=== PATIENT | female | born 1975 | race Caucasian/White ===

== ENCOUNTER 2018-07-17 12:36 | Emergency (ER) | END 2018-07-17 19:02 | disposition home or self-care (01) ==

== ENCOUNTER 2019-02-11 22:38 | Emergency (ER) | payer MEDICAID ==
[~2019-02-11] VITALS: Ht 147.3 cm; Wt 75.6 kg
[~2019-02-11 22:38] MED LIST: CIPR500T4 PO; METR500T PO; ONDA4TAB14 PO
[2019-02-11 22:50] VITALS: Ht 147.3 cm; Wt 75.6 kg
[2019-02-12] MEDS ORDERED: ONDANSETRON 4 MG INJ IV STA (01:39)
[2019-02-12] MEDS ORDERED: KETOROLAC 15 MG INJ IV STA (01:39)
[2019-02-12] MEDS ORDERED: SOD CHLORIDE 0.9% 1,000 ML IV ONE (02:00)
--- NOTE | 2019-02-12 05:59 | ERD ---
ER Documentation Chief Complaint Chief Complaint AP X'S 1 WEEK HPI This is a 43-year-old female with a past medical history of diverticulosis who is presenting with approximately 1 week of progressive waxing and waning moderate cramping aching colicky suprapubic abdominal pain radiating to both flanks with nausea but no vomiting. The patient does not endorse alleviating or exacerbating factors. She does not endorse constipation or diarrhea. She has not had any black or bloody or tarry stools. She denies dysuria or hematuria or urgency, but she does note increased urinary frequency. The patient denies feeling sick recently. The patient denies fever or chills. The patient has had no headache or vision changes. The patient does not endorse neck or back pain. The patient denies lightheadedness or dizziness. The patient has had no chest pain or trouble breathing. The patient has had no focal deficits. The patient has had no weakness or numbness or tingling to the face or extremities. ROS All systems reviewed and are negative except as per history of present illness. Medications Home Meds Active Scripts Ondansetron (Ondansetron Odt) 4 Mg Tab.rapdis, 4 MG PO Q6H PRN for NAUSEA AND/OR VOMITING, #10 TAB Prov:CARIDAD GOVEA MD 07/17/18 Metronidazole* (Flagyl*) 500 Mg Tablet, 500 MG PO TID for 10 Days, TAB Prov:CARIDAD GOVEA MD 07/17/18 Ciprofloxacin Hcl* (Ciprofloxacin Hcl*) 500 Mg Tablet, 500 MG PO BID for 10 Days, TAB Prov:CARIDAD GOVEA MD 07/17/18 Allergies Allergies: Coded Allergies: No Known Allergies (Verified Allergy, Mild, 07/17/18) PMhx/Soc Medical and Surgical Hx: pt denies Medical Hx, pt denies Surgical Hx History of Surgery: No Anesthesia Reaction: No Hx Neurological Disorder: No Hx Respiratory Disorders: No Hx Cardiac Disorders: No Hx Psychiatric Problems: No Hx Miscellaneous Medical Probl: Yes (Diverticulosis) Hx Alcohol Use: No Hx Substance Use: No Hx Tobacco Use: No Smoking Status: Never smoker FmHx Family History: No diabetes Physical Exam Vitals Vital Signs Date Temp Pulse Resp B/P (MAP) Pulse Ox O2 O2 Flow FiO2 Time Delivery Rate 02/11/19 98.5 77 16 115/66 95 22:50 (82) Physical Exam Const: No acute distress Head: Atraumatic Eyes: Normal Conjunctiva ENT: Normal External Ears, Nose and Mouth. Neck: Full range of motion. No meningismus. Resp: Clear to auscultation bilaterally Cardio: Regular rate and rhythm, no murmurs Abd: Soft, non distended. Mild suprapubic abdominal tenderness. No guarding or rebound. Normal bowel sounds Skin: No petechiae or rashes Back: No midline or flank tenderness Ext: No cyanosis, or edema Neur: Awake and alert Psych: Normal Mood and Affect Result Diagram: 02/12/1914802/12/19148 Results 24 hrs Laboratory Tests Test 02/12/19 01:49 02/12/19 02:06 White Blood Count 9.0 10^3/ul Red Blood Count 4.59 10^6/ul Hemoglobin 13.3 g/dl Hematocrit 40.2 % Mean Corpuscular Volume 87.6 fl Mean Corpuscular Hemoglobin 29.0 pg Mean Corpuscular Hemoglobin Concent 33.1 g/dl Red Cell Distribution Width 14.1 % Platelet Count 397 10^3/UL Mean Platelet Volume 10.0 fl Immature Granulocytes % 0.300 % Neutrophils % 54.4 % Lymphocytes % 27.7 % Monocytes % 6.5 % Eosinophils % 10.5 % Basophils % 0.6 % Nucleated Red Blood Cells % 0.0 /100WBC Immature Granulocytes # 0.030 10^3/ul Neutrophils # 4.9 10^3/ul Lymphocytes # 2.5 10^3/ul Monocytes # 0.6 10^3/ul Eosinophils # 1.0 10^3/ul Basophils # 0.1 10^3/ul Nucleated Red Blood Cells # 0.0 10^3/ul Urine Color YELLOW Urine Clarity SLIGHTLY CLOUDY Urine pH 5.0 Urine Specific [place] 1.010 Urine Ketones NEGATIVE mg/dL Urine Nitrite NEGATIVE mg/dL Urine Bilirubin NEGATIVE mg/dL Urine Urobilinogen NEGATIVE mg/dL Urine Leukocyte Esterase 1+ Bettie/ul Urine Microscopic RBC 28 /HPF Urine Microscopic WBC 7 /HPF Urine Squamous Epithelial Cells FEW /HPF Urine Bacteria FEW /HPF Urine Hemoglobin 2+ mg/dL Urine Glucose NEGATIVE mg/dL Urine Total Protein NEGATIVE mg/dl Sodium Level 142 mmol/L Potassium Level 3.8 mmol/L Chloride Level 105 mmol/L Carbon Dioxide Level 27 mmol/L Anion Gap 10 Blood Urea Nitrogen 5 mg/dl Creatinine 0.47 mg/dl Est Glomerular Filtrat Rate mL/min > 60 mL/min Glucose Level 122 mg/dl Calcium Level 9.8 mg/dl Total Bilirubin 0.4 mg/dl Direct Bilirubin 0.00 mg/dl Indirect Bilirubin 0.4 mg/dl Aspartate Amino Transf (AST/SGOT) 81 IU/L Alanine Aminotransferase (ALT/SGPT) 110 IU/L Alkaline Phosphatase 71 IU/L Total Protein 7.9 g/dl Albumin 4.1 g/dl Globulin 3.80 g/dl Albumin/Globulin Ratio 1.07 Lipase 77 U/L POC Beta HCG, Qualitative NEGATIVE Current Medications Medications Dose Sig/Sheldon Start Time Status Last (Trade) Ordered Route PRN Stop Time Admin Dose Reason Admin Sodium 1,000 ml @ Q1H ONCE 02/12/19 DC 02/12/19 Chloride 1,000 mls/hr IV 02:00 02/12/19 02:07 02:59 Ketorolac 15 mg ONCE STAT 02/12/19 DC 02/12/19 Tromethamine IV 01:39 02/12/19 02:10 (Toradol) 01:41 Ondansetron 4 mg ONCE STAT 02/12/19 DC 02/12/19 HCl (Zofran IV 01:39 02/12/19 02:09 Inj) 01:41 Procedures/MDM MDM The patient's presentation warrants further investigation. Previous medical rec ords, if available, were reviewed. LABS The patient's laboratory testing was obtained and reviewed. No emergent treatment was required unless described below. CBC: No E/o systemic infection or severe anemia or thrombocytopenia Chemistry: No E/o severe acidosis or alkalosis or renal failure or diabetic ketoacidosis. Transaminitis. Lipase: No E/o pancreatitis Urine: E/o acute infection with hematuria IMAGING Imaging and Radiology interpretation reviewed. CT Abd/Pelvis FINDINGS: CT abdomen: LOWER THORAX: Lung bases are clear. LIVER AND GALLBLADDER: There is diminished density throughout the liver consistent with diffuse steatosis. The liver and gallbladder are otherwise unremarkable. SPLEEN: Normal. PANCREAS: Normal. ADRENAL GLANDS: Normal. KIDNEYS: Kidneys are symmetric in size and morphology. No hydronephrosis or visible renal calculus. Bilateral ureters are unremarkable. VASCULATURE: Abdominal aorta is normal in caliber. LYMPH NODES: No significant retroperitoneal or mesenteric lymphadenopathy. BOWEL AND MESENTERY: Stomach and small bowel are unremarkable. There is a small fat containing umbilical hernia. A normal appendix is identified. Diverticulosis of the descending and sigmoid colon. Mild hazy stranding at the anterior margin of the large bowel along a short segment of the lower descending colon (axial image 101). No extraluminal gas or evidence of an abscess. CT pelvis: The urinary bladder is unremarkable. Uterus and adnexal structures appear normal for age. There is no free fluid in the pelvis. Regional bones and superficial soft tissues are grossly unremarkable for age. IMPRESSION: 1. Subtle stranding at the anterior wall of the lower sigmoid colon with mul tiple underlying diverticula, consistent with uncomplicated diverticulitis. No evidence of ratna perforation or abscess. 2. Hepatic steatosis. Electronically viewed and signed by Physician Niall on 02/12/2019 05:30 TREATMENT/DISPOSITION The patient symptoms are consistent with uncomplicated diverticulitis. There is also evidence of UTI with hematuria. I do feel that the patient requires antibiotics, but I feel that she may be treated in an outpatient setting. The patient does not have any evidence of peritonitis. The patient does not have clinical symptoms concerning for mesenteric ischemia or ischemic colitis. The patient does not have right upper quadrant tenderness, and I have low suspicion for gallstones, cholecystitis or biliary colic. The patient does not have any epigastric pain. I have low suspicion for gastritis, PUD or GERD. The patient does not have left upper quadrant tenderness. I have low suspicion for pancreatitis. The patient does not have any right lower quadrant tenderness, or periumbilical tenderness. I have low suspicion for appendicitis. The patient does not have any flank tenderness. The patient does not have gross hematuria. I have decreased suspicion for nephrolithiasis or renal colic. The patient does not have any palpable pulsatile mass or severe abdominal pain radiating to the back. I have low suspicion for aortic aneurysm, dissection or rupture. DISCHARGE Upon reevaluation of the patient, symptoms have improved. No emergent diagnoses were identified. At this time, I feel that the patient stable for discharge. The patient was instructed to follow-up with a primary care physician in 1-3 days. The patient will be given strict precautions with which to return to the emergency department. Prescriptions: Ciprofloxacin, Flagyl, Zofran Disclaimer: Inadvertent spelling and grammatical errors are likely due to EHR/dictation software use and do not reflect on the overall quality of patient care. Note that the electronic time recorded on this note does not necessarily reflect the actual time of the patient encounter. Departure Diagnosis: Primary Impression: Acute diverticulitis Additional Impressions: Urinary tract infection Urinary tract infection type: acute cystitis Hematuria presence: with hematuria Qualified Codes: N30.01 - Acute cystitis with hematuria Transaminitis Suprapubic abdominal pain Nausea Condition: Stable Patient Instructions: Understanding Diverticulosis and Diverticulitis, Understanding Urinary Tract Infections (UTIs) Additional Instructions: Thank you for for coming to [facility] for your care today. Please ask your nurse or provider if you have questions about your care today and do not leave until all your questions have been answered. Please use any medications given as directed and follow-up with your doctor (or the doctor you were referred to) in the next 1-3 days. If you do not have a primary care doctor you may follow up at the [facility] or [facility] (listed below). You may also use motrin and tylenol as needed for fever and/or pain unless instructed otherwise by your provider or nurse. Indications for more urgent fol low-up have been discussed, but you may return to the Emergency Department at ANY time for any worrisome or worsening symptoms. If you have abdominal pain, please know that no test or exam you received is perfect and you should follow up within 8 hours for continued pain. If you had any imaging studies today, such as an X-Ray or CT Scan, these studies will be reviewed later by a radiologist. You will be called if there are important findings that were not identified today, so make sure the contact information you provided at registration is correct. If you received any narcotic pain control medicine today, such as Vicodin, Morphine or Dilaudid, your coordination and judgment may be affected for a number of hours. Please do not drive or operate heavy machinery, and you may want someone to assist you at home. If you were given a prescription for narcotic medication, be aware that it is very addictive- use sparingly and only if necessary. PLEASE SEEK FURTHER EVALUATION AND MANAGEMENT AT YOUR DOCTORS OFFICE WITHIN THE NEXT 1-3 DAYS. IT IS YOUR RESPONSIBILITY TO MAKE AN APPOINTMENT FOR FOLOW-UP CARE. IF YOU HAVE A PRIMARY DOCTOR, PLEASE CALL THEIR OFFICE TO SCHEDULE AN APPOINTMENT FOR FOLLOW UP. IF YOU DO NOT HAVE A PRIMARY DOCTOR YOU CAN CALL OUR PHYSICIAN REFERRAL HOTLINE AT IF YOU CAN NOT AFFORD TO SEE A PHYSICIAN YOU CAN CHOSE FROM THE FOLLOWING CRITICAL ACCESS HOSP[facility] CLINICS: [facility] [address] [facility] [address] [facility] [address] [facility] [address] [facility] [address] [facility]. [facility]. [address] SHELLI PERALTA MD Feb 12, 2019 05:59
[2019-02-12] MEDS ORDERED: METR500T PO (06:00)
[2019-02-12] MEDS ORDERED: CIPR500T4 PO (06:00)
[2019-02-12] MEDS ORDERED: ONDA4TAB8 PO (06:00)
[2019-02-12 06:03] VITALS: BP 107/60; PULSE 80; RESP 19
== END 2019-02-12 06:28 | disposition home or self-care (01) ==
LOC: FTE 22:38
DX: K57.32 Diverticulitis of large intestine without perforation or abscess without bleeding (principal); N30.01 Acute cystitis with hematuria; R74.0 Nonspecific elevation of levels of transaminase and lactic acid dehydrogenase [LDH]
CPT/HCPCS: 36415; 74176; 80053; 81001; 81025; 83690; 85025; 96374; 96375; J1885; J2405; J7030; Z7502